=== PATIENT | female | born 1985 | race Caucasian/White ===

== ENCOUNTER 2022-03-04 07:29 | Emergency (ER) | payer BC, MEDICAID ==
[2022-03-04] MEDS ORDERED: Dexamethasone 10 MG/ML VIAL ONE (09:28)
[2022-03-04] MEDS ORDERED: Ketorolac Tromethamine 30 MG/ML VIAL ONE (09:28)
[2022-03-04] MEDS ORDERED: Bicillin LA 1.2 MILLION UNITS/2 ML SYRINGE ONE (11:01)
[2022-03-04] MEDS ORDERED: Acetaminophen 500 MG TAB ONE (11:45)
[2022-03-04 13:35] LABS: SARS-CoV-2 PCR by NAA Not Detected (NotDetected)
== END 2022-03-04 11:48 | disposition home or self-care (01) ==
LOC: ERS 07:29
DX: J02.0 Streptococcal pharyngitis (principal); F17.210 Nicotine dependence, cigarettes, uncomplicated; F17.290 Nicotine dependence, other tobacco product, uncomplicated; Z20.822 Contact with and (suspected) exposure to COVID-19
CPT/HCPCS: 87430; 87804; 96372; 99283; J0561; J1100; J1885; U0003; U0005

== ENCOUNTER 2023-12-04 15:43 | Outpatient (CLI) | payer BC | END 2023-12-04 15:44 | disposition home or self-care (01) | LOC: BICMAMMO 15:43 | PROVIDERS: ATTEND Student in an Organized Health Care Education/Training Program | DX: Z13.820 Encounter for screening for osteoporosis (principal); E28.319 Asymptomatic premature menopause; M85.89 Other specified disorders of bone density and structure, multiple sites; Z90.722 Acquired absence of ovaries, bilateral; Z90.710 Acquired absence of both cervix and uterus | CPT/HCPCS: 77080 ==